=== PATIENT | female | born 1985 | race African-American/Black ===

== ENCOUNTER 2016-05-27 09:04 | Emergency (ER) | payer MEDICAID ==
[~2016-05-27] VITALS: Ht 167.6 cm; Wt 100.0 kg
[~2016-05-27 09:04] MED LIST: IBUP600 PO; PERC5TAB12 PO
[2016-05-27 09:05] VITALS: BP 123/76; PULSE 108; RESP 16; TEMP 98.2; O2SAT 98
== END 2016-05-27 12:06 | disposition left against medical advice (07) ==
LOC: NED 09:04
DX: R10.9 Unspecified abdominal pain (principal)
CPT/HCPCS: 99281

== ENCOUNTER 2016-09-29 14:33 | Emergency (ER) | payer MEDICAID ==
[~2016-09-29] VITALS: Ht 167.6 cm; Wt 100.0 kg
[2016-09-29 14:35] VITALS: BP 122/79; PULSE 116; RESP 20; TEMP 98.7; O2SAT 100
[2016-09-29 15:19] VITALS: PULSE 101
--- NOTE | 2016-09-29 15:23 | PD ---
HPI Chief Complaint: Musculoskeletal Complaint Time Seen by Provider: 15:19 Travel History International Travel<30 days: No Contact w/Intl Traveler<30days: No Traveled to known affect area: No History of Present Illness HPI 31-year-old female with chief complaint of right knee pain status post mechanical fall. Patient reports she tripped and fell onto a right flexed knee. She has anterior pain which is constant, nonradiating, worse with movement, relieved with rest. Severity 7 out of 10. She did not hit her head. No loss of consciousness. She denies any other injury. [facility] Past Medical History Anxiety: Yes Diminished Hearing: No Gastrointestinal Disorders: No GERD: Yes Immunizations Current: No Seizures: Yes (CHILDHOOD) Tetanus Vaccination: < 5 Years ?: Not : 6 Para: 5 Miscarriage: 0 : 0 Dilation and Curettage (D&C): Yes Past Surgical History Gynecologic Surgery: Yes (D & C AFTER LAST DELIVERY) Social History Alcohol Use: No Tobacco Use: Yes (2 CIGSS/DAY) Substance Use: No Allergies-Medications (Allergen,Severity, Reaction): Coded Allergies: No Known Allergies (Verified , 09/29/16) Reported Meds & Prescriptions Reported Meds & Active Scripts Active No Active Prescriptions or Reported Medications Review of Systems Except as stated in HPI: all other systems reviewed are Neg General / Constitutional: No: Fever Eyes: No: Visual changes HENT: No: Headaches Cardiovascular: No: Chest Pain or Discomfort Respiratory: No: Shortness of Breath Gastrointestinal: No: Abdominal Pain Genitourinary: No: Dysuria Musculoskeletal: Positive: Other (right knee pain) Skin: No Rash Neurologic: No: Weakness Physical Exam Narrative GENERAL: Well-nourished, well-developed patient. SKIN: Focused skin assessment warm/dry. HEAD: Normocephalic. EYES: No scleral icterus. No injection or drainage. NECK: Supple, trachea midline. No JVD or lymphadenopathy. CARDIOVASCULAR: Regular rate and rhythm without murmurs, gallops, or rubs. RESPIRATORY: Breath sounds equal bilaterally. No accessory muscle use. GASTROINTESTINAL: Abdomen soft, non-tender, nondistended. MUSCULOSKELETAL: No cyanosis, or edema. Right knee: The joint is stable. Anterior pain and point tenderness to the patella. Mild swelling. Limited range of motion patient unable to fully flex the knee. 2+ distal pulses. Normal sensation. BACK: Nontender without obvious deformity. No CVA tenderness. Data Data Last Documented VS Vital Signs Date Time Temp Pulse Resp B/P Pulse Ox O2 Delivery O2 Flow Rate FiO2 09/29/16 15:19 101 09/29/16 14:35 98.7 20 122/79 100 Room Air Orders Knee, Complete (4vws) (09/29/16 ) Darren Bandage (09/29/16 16:50) Ketorolac Inj (Toradol Inj) (09/29/16 17:00) Crutches (09/29/16 16:52) MDM Medical Decision Making Medical Screen Exam Complete: Yes Emergency Medical Condition: Yes Differential Diagnosis Knee contusion, knee fracture, knee sprain Narrative Course 31-year-old female with chief complaint of right knee pain status post falling onto a flexed knee. The joint is stable. The extremity is neurovascular intact. X-ray pending X-ray of the right knee: Large joint effusion without acute fracture. Diagnostic findings discussed with patient. Darrne wrap applied to the right knee. Crutches given for weightbearing. Patient instructed to NSAIDs as needed for pain. Follow up with primary care doctor. Patient verbalizes understanding and agrees to plan. Diagnosis Primary Impression: Right knee sprain Qualified Code: S83.91XA - Sprain of right knee, unspecified ligament, initial encounter Referrals: Primary Care Physician Departure Forms: Tests/Procedures, Work Release Enter return to work date: Oct 01, 2016 Special Instructions: AVOID PROLONGED STANDING OR WALKING. Additional Instructions: Take [id number] Motrin 142660 milligrams by mouth every 6-8 hours as needed for pain. Ice and elevate the extremity. Use Darren wrap and crutches as described. Follow-up the primary care doctor. Scripts No Active Prescriptions or Reported Meds Disposition: 01 DISCHARGE HOME Condition: Stable MariosharonRadha ALFONSO Sep 29, 2016 15:23
--- NOTE | 2016-09-29 16:25 | RADRPT ---
EXAM DATE/TIME: 09/29/2016 15:27 [facility] COMPARISON: No previous studies available for comparison. INDICATIONS : Knee pain, from fall in home earlier today. MEDICAL HISTORY : None. SURGICAL HISTORY : None. ENCOUNTER: Initial ACUITY: 1 day PAIN SCORE: 0/10 LOCATION: Right knee FINDINGS: There is a large suprapatellar knee joint effusion. There is no acute fracture or dislocation of the right knee. Mild osteoarthritis is noted involving the medial femoral tibial joint. CONCLUSION: 1. Large suprapatellar knee joint effusion. 2. Mild osteoarthritis involving the medial femoral tibial joint. 3. No acute fracture or dislocation. Amari Manzo MD on September 29, 2016 at 16:15 Board Certified Radiologist. This report was verified electronically.
[2016-09-29] MEDS ORDERED: KETOROLAC TROMETHAMINE 60 MG/2 ML (IM) VIAL IM ONE (17:00)
== END 2016-09-29 17:20 | disposition home or self-care (01) ==
LOC: NEPD 14:33
DX: S83.91XA Sprain of unspecified site of right knee, initial encounter (principal); F17.210 Nicotine dependence, cigarettes, uncomplicated; W01.0XXA Fall on same level from slipping, tripping and stumbling without subsequent striking against object, initial encounter
CPT/HCPCS: 73564; 96372; 99284; E0113; J1885

== ENCOUNTER 2016-10-19 11:17 | Emergency (ER) | payer MEDICAID ==
[~2016-10-19] VITALS: Ht 167.6 cm; Wt 105.0 kg
[2016-10-19 11:20] VITALS: BP 138/78; PULSE 105; RESP 15; TEMP 98.4; O2SAT 98
[2016-10-19] MEDS ORDERED: AMOX875T PO (11:50)
[2016-10-19] MEDS ORDERED: CHLO.12%30 SWISH-SPIT (11:51)
[2016-10-19] MEDS ORDERED: CLIN1CAP6 PO (11:53)
--- NOTE | 2016-10-19 11:53 | PD ---
HPI Chief Complaint: Oral / Dental Pain or Problem Time Seen by Provider: 11:41 Travel History International Travel<30 days: No Contact w/Intl Traveler<30days: No Traveled to known affect area: No History of Present Illness HPI Patient is a 31-year-old female comes in complaining of pain and swelling to her lower jaw. She says she has had some tooth problems in this area. She saw her doctor on the who prescribed amoxicillin and a mouthwash. She says she has taken several doses of this, but the swelling has gotten worse. She says she thinks it got worse last night and this morning. She complains of pain to the area. She has noticed bad breath, but has not had any draining from her gums. She denies any difficulty swallowing or difficulty breathing. She says she has been referred to an oral surgeon in [place] for her teeth. [facility] Past Medical History Anxiety: Yes Diminished Hearing: No Gastrointestinal Disorders: No GERD: Yes Immunizations Current: No Seizures: Yes (CHILDHOOD) ?: Not LMP: 10/16/16 : 6 Para: 5 Miscarriage: 0 : 0 Dilation and Curettage (D&C): Yes Past Surgical History Gynecologic Surgery: Yes (D & C AFTER LAST DELIVERY) Social History Alcohol Use: No Tobacco Use: Yes (2 CIGSS/DAY) Substance Use: No Allergies-Medications (Allergen,Severity, Reaction): Coded Allergies: No Known Allergies (Verified , 10/19/16) Reported Meds & Prescriptions Reported Meds & Active Scripts Active No Active Prescriptions or Reported Medications Review of Systems General / Constitutional: No: Fever, Chills HENT: Positive: Dental Difficulties, No: Headaches, Lightheadedness Cardiovascular: No: Chest Pain or Discomfort Respiratory: No: Cough, Shortness of Breath Gastrointestinal: No: Nausea, Vomiting Musculoskeletal: No: Myalgias, Pain Skin: No Rash, No Change in Pigmentation Neurologic: No: Weakness, Dizziness Physical Exam Narrative GENERAL: Awake and alert, in no acute distress. SKIN: Focused skin assessment warm/dry. No erythema, but some warmth along the right side of the lower jaw. HEAD: Atraumatic. Normocephalic. EYES: Pupils equal and round. No scleral icterus. ENT: Mucous membranes pink and moist. Poor dentition. No evidence of abscess along the lower jaw. Airways patent. Tender to palpation along the right lower jaw. CARDIOVASCULAR: Regular rate and rhythm. No murmur appreciated. RESPIRATORY: No accessory muscle use. Clear to auscultation. Breath sounds equal bilaterally. MUSCULOSKELETAL: No obvious deformities. No clubbing. No cyanosis. No edema. NEUROLOGICAL: Awake and alert. No obvious cranial nerve deficits. Motor grossly within normal limits. Normal speech. Data Data Last Documented VS Vital Signs Date Time Temp Pulse Resp B/P Pulse Ox O2 Delivery O2 Flow Rate FiO2 10/19/16 11:20 98.4 105 15 138/78 98 MDM Medical Decision Making Medical Screen Exam Complete: Yes Emergency Medical Condition: Yes Medical Record Reviewed: Yes Differential Diagnosis Dental infection versus dental abscess versus dental caries Narrative Course Patient is a 31-year-old female comes in complaining of pain and swelling to her lower jaw. She has been on amoxicillin for dental infection, but feels she is getting worse. Exam shows some mild swelling of the right lower jaw as well as tenderness along her teeth. She has very poor dentition. Patient will be switched to clindamycin. Advised to stop the amoxicillin. Advised to follow- up with the oral surgeon for definitive care. Advised to return to the ED as needed for any worsening symptoms. Advised take ibuprofen as needed for pain. Diagnosis Primary Impression: Dental infection Patient Instructions: Dental Abscess (ED), Dental Caries (ED), General Instructions Additional Instructions: Stop taking the amoxicillin and take clindamycin instead. Take ibuprofen for pain and swelling. Follow-up with a dentist/oral surgeon. Return to the ED as needed for any worsening symptoms. Scripts Clindamycin 300 Mg [id number] Mg PO Q8H 7 Days Ref 0 Prov:Rachael Garcia MD 10/19/16 Disposition: 01 DISCHARGE HOME Condition: Stable Rachael Garcia MD Oct 19, 2016 11:53
== END 2016-10-19 12:13 | disposition home or self-care (01) ==
LOC: NEPD 11:17
DX: K04.7 Periapical abscess without sinus (principal); Z72.0 Tobacco use
CPT/HCPCS: 99283